=== PATIENT | female | born 1980 | race Caucasian/White ===

== ENCOUNTER 2019-06-03 17:58 | Emergency (ER) | payer MEDICAID, MEDICARE ==
[2019-06-03 18:28] VITALS: BP 143/80
[2019-06-03] MEDS ORDERED: Dexamethasone TAB* 4 MG PO ONE (19:13)
--- NOTE | 2019-06-03 19:13 | UC ---
UC General HPI - HPI Summary HPI Summary: Eye drainage, sore throat, R ear pain and cough x 3 days. No contact use. + hx asthma. + hx IDDM, BS average is 130 but is 247 with this illness. no fever, cp or sob. - History of Current Complaint Chief Complaint: UCGeneralIllness Stated Complaint: SORE THROAT/EARS/EYES Time Seen by Provider: 06/03/19 19:06 Hx Obtained From: Patient Onset/Duration: Gradual Onset Timing: Constant Pain Intensity: 8 - Allergy/Home Medications Allergies/Adverse Reactions: Allergies Allergy/AdvReac Type Severity Reaction Status Date / Time No Known Allergies Allergy Verified 06/03/19 18:28 Home Medications: Home Medications Insulin GLARGINE(*) [Lantus(*)] 69 units SUBCUT BID 06/03/19 [History Confirmed 06/03/19] Insulin Lispro [Humalog] 16 unit SC TID 06/03/19 [History Confirmed 06/03/19] Lisinopril TAB* [Prinivil TAB*] 25 mg PO DAILY 06/03/19 [History Confirmed 06/03] Metoprolol Tartrate TAB* [Lopressor TAB*] 50 mg PO BID 06/03/19 [History Confirmed 06/03/19] Pregabalin CAP(*) [Lyrica CAP(*)] 200 mg PO QID 06/03/19 [History Confirmed 01/16] PMH/Surg Hx/FS Hx/Imm Hx Endocrine History: Diabetes Respiratory History: Asthma - Surgical History Surgical History: Yes Surgery Procedure, Year, and Place: Partial left foot amp- 2016 - Family History Known Family History: Positive: Non-Contributory - Social History Alcohol Use: Rare Substance Use Type: None Smoking Status (MU): Current Every Day Smoker Amount Used/How Often: 1 ppd Length of Time of Smoking/Using Tobacco: 20 yr Review of Systems All Other Systems Reviewed And Are Negative: No Constitutional: Negative: Fever, Chills Eyes: Positive: Drainage, Eye Redness. Negative: Blurred Vision, Photophobia ENT: Positive: Sore Throat, Ear Ache - R. Negative: Sinus Congestion Respiratory: Positive: Cough. Negative: Shortness Of Breath Cardiovascular: Negative: Palpitations, Chest Pain Gastrointestinal: Negative: Vomiting, Diarrhea, Nausea Genitourinary: Negative: Dysuria Neurological: Negative: Headache Physical Exam Triage Information Reviewed: Yes Appearance: Well-Appearing Vital Signs: Initial Vital Signs Temp 97.8 F 06/03/19 18:21 Pulse 98 06/03/19 18:21 Resp 18 06/03/19 18:21 BP 143/80 06/03/19 18:21 Pulse Ox 100 06/03/19 18:21 Vital Signs Reviewed: Yes Eyes: Positive: Conjunctiva Inflamed, Discharge - green OU., Other: - PERRL. EOMI. No periorbital edema or rash. ENT: Positive: Pharyngeal erythema, TMs normal, Tonsillar swelling - moderate, Tonsillar exudate, Uvula midline. Negative: Nasal congestion, Nasal drainage, Trismus, Muffled voice, Hoarse voice Neck: Positive: Supple, Nontender, Enlarged Nodes @ - peritonsilar Respiratory: Positive: Lungs clear, Normal breath sounds, No respiratory distress Cardiovascular: Positive: RRR, No Murmur Abdomen Description: Positive: Nontender Musculoskeletal: Positive: ROM Intact Neurological: Positive: Alert Psychological: Positive: Age Appropriate Behavior Skin Exam: Normal Course/Dx - Differential Dx - Multi-Symptom Differential Diagnoses: Other - non toxic. not hypoxic. no concern for pneumonia. eyes c/w conjunctivitis with green d/c thus will tx for bacterial infection. Pharyngeal erythema, moderate swelling and exudative plus hx DM with BS 247 thus will cover for bacterial infection. No concern for abscess. - Diagnoses Provider Diagnosis: Conjunctivitis, Tonsillitis Discharge ED - Sign-Out/Discharge Documenting (check all that apply): Patient Departure All imaging exams completed and their final reports reviewed: No Studies - Discharge Plan Condition: Stable Disposition: HOME Prescriptions: Amoxicillin/Clavulanate TAB* [Augmentin TAB 875*] 875 mg PO BID 10 Days #20 tab Polymyx/Trimethoprim OPTH* [Polytrim OPHTH*] 1 drop BOTH EYES Q3H 7 Days #1 btl Patient Education Materials: Tonsillitis (ED), Conjunctivitis (ED) Referrals: No Primary Care Phys,NOPCP [Primary Care Provider] - Additional Instructions: FOLLOW UP WITH YOUR PRIMARY CARE IN [place] SCHEDULED ON 06/11/19. FOLLOW UP SOONER OR GO TO THE ER FOR ANY WORSENING. - Billing Disposition and Condition Condition: STABLE Disposition: Home - Attestation Statements Provider Attestation: This patient was not seen by me. I was available for consult. NEYDA
== END 2019-06-03 19:27 | disposition home or self-care (01) ==
LOC: UCCORT 17:58
DX: H10.9 Unspecified conjunctivitis (principal); J03.90 Acute tonsillitis, unspecified; E11.9 Type 2 diabetes mellitus without complications; Z79.4 Long term (current) use of insulin; F17.210 Nicotine dependence, cigarettes, uncomplicated
CPT/HCPCS: 87651; 99202; G0463; J8540

== ENCOUNTER 2022-08-31 17:42 | Inpatient (IN) ==
[2022-08-31] MEDS ORDERED: Lactated Ringers 1000 ml BAG 1,000 ML IV ONE ×2 (17:55)
[2022-08-31 18:59] LABS: ABS Basophils 0.2 10^3/ul (0-0.2); ABS Eosinophils 0.4 10^3/ul (0-0.6); ABS Lymphocytes 4.1 10^3/ul (1.0-4.8); ABS Neutrophils 18.9 10^3/ul (1.5-7.7); Eosinophil % 1.7 %; Hematocrit 38 % (35-47); Hemoglobin 12.7 g/dL (12.0-16.0); Lymphocyte % 16.5 %; Mean Corpuscular HGB Conc 33 g/dL (31-36); Mean Corpuscular Hemoglobin 29 pg (27-31); Mean Corpuscular Volume 88 fL (80-97); Mean Platelet Volume 7.9 fL (7.4-10.4); Nucleated Red Blood Cells % 0.1; Platelet Count 510 10^3/uL (150-450); Red Blood Count 4.32 10^6 /uL (3.70-4.87); Red Cell Distribution Width 15 % (10-15); White Blood Count 24.6 10^3/uL (3.5-10.8)
[2022-08-31 19:25] LABS: High Sens Troponin Baseline 7 pg/mL (<15)
[2022-08-31] MEDS ORDERED: Piperacillin/Tazobac ADVAN 3.375 GM in NS 0.9% 100 ml BAG 100 ML IV ONE (19:29)
[2022-08-31] MEDS ORDERED: Vancomycin 1,000 MG in NS 0.9% 250 ml 250 ML IVPB ONE (19:29)
[2022-08-31 20:02] LABS: ALT 11 U/L (7-52); Albumin 3.8 g/dL (3.2-5.2); Albumin/Globulin Ratio 0.7 (1-3); Alkaline Phosphatase 179 U/L (35-149); Blood Urea Nitrogen 14 mg/dL (6-24); CO2 Carbon Dioxide 30 mmol/L (22-32); Calcium 11.2 mg/dL (8.6-10.3); Chloride 88 mmol/L (101-111); Creatine Kinase 33 U/L (10-223); Globulin 5.3 g/dL (2-4); Glucose 252 mg/dL (70-100); Sodium 128 mmol/L (135-145); Total Protein 9.1 g/dL (6.4-8.9); eGFR CKD-EPI 47.9 (>60)
[2022-08-31 20:05] LABS: HCG Pregnancy < 0.60 mIU/mL
[2022-08-31 20:14] LABS: TSH Ultra Thyroid Stim Horm 0.76 mcIU/mL (0.34-5.60)
[2022-08-31 20:20] LABS: Anion Gap 10 mmol/L (2-11)
[2022-08-31 20:26] LABS: Venous Bicarbonate HCO3 26.7 mmol/L (24-28)
[2022-08-31 20:49] LABS: High Sensitivity Troponin 1 Hr 6 pg/mL (<15)
[2022-08-31 21:06] LABS: Magnesium 1.8 mg/dL (1.9-2.7)
[2022-08-31 21:07] LABS: Phosphorus 2.2 mg/dL (2.5-5.0); Potassium Redraw 4.9 mmol/L (3.5-5.0)
[2022-08-31] MEDS ORDERED: Magnesium Sulfate IV 3 GM in NS 0.9% 100 ml BAG 100 ML IVPB ONE (21:15)
[2022-08-31] MEDS ORDERED: Potassium Phosphate IV 5 MMOL in NS 0.9% 250 ml 250 ML IVPB ONE (21:15)
[2022-08-31] MEDS ORDERED: Dextrose 50% Syringe 50 ml 25 GM/50 ML SYRINGE IV PUSH PRN (21:49)
[2022-08-31] MEDS: Enoxaparin 40 MG/0.4 ML SYR SUBCUT SCH (23:59)
[2022-09-01] MEDS ORDERED: NS 0.9% 1000 ml BAG 1,000 ML IV ONE (03:45)
[2022-09-01 08:46] LABS: ABS Basophils 0.2 10^3/ul (0-0.2); ABS Eosinophils 0.4 10^3/ul (0-0.6); ABS Lymphocytes 4.1 10^3/ul (1.0-4.8); ABS Monocytes 0.8 10^3/ul (0-0.8); ABS Neutrophils 11.4 10^3/ul (1.5-7.7); Eosinophil % 2.2 %; Hematocrit 30 % (35-47); Hemoglobin 9.6 g/dL (12.0-16.0); Lymphocyte % 24.1 %; Mean Corpuscular HGB Conc 32 g/dL (31-36); Mean Corpuscular Hemoglobin 28 pg (27-31); Mean Corpuscular Volume 89 fL (80-97); Mean Platelet Volume 7.7 fL (7.4-10.4); Platelet Count 354 10^3/uL (150-450); Red Blood Count 3.39 10^6 /uL (3.70-4.87); Red Cell Distribution Width 15 % (10-15); White Blood Count 16.9 10^3/uL (3.5-10.8)
[2022-09-01 09:26] LABS: Calcium 9.2 mg/dL (8.6-10.3); Magnesium 2.3 mg/dL (1.9-2.7); Phosphorus 2.1 mg/dL (2.5-5.0); Potassium 4.1 mmol/L (3.5-5.0)
[2022-09-01] MEDS: Insulin GLARGINE 100 un/ml 10 ml VIAL SUBCUT SCH ×2 (09:26→22:57)
[2022-09-01 09:27] LABS: Urine Appearance Cloudy; Urine Bilirubin Negative (Negative); Urine Blood Negative (Negative); Urine Color Yellow; Urine Glucose 1+(50 mg/dL) (Negative); Urine Ketones Negative (Negative); Urine Nitrite Negative (Negative); Urine Protein 2+(100 mg/dL) (Negative); Urine Specific Gravity 1.017 (1.002-1.030); Urine Urobilinogen Negative (Negative)
[2022-09-01 09:31] LABS: Urine Bacteria 1+ (Absent); Urine Red Blood Cell 2+(6-10/hpf) (Absent); Urine Squamous Epithelial Cell Present (Absent); Urine White Blood Cell 1+(6-10/hpf) (Absent); Urine Yeast Present (Absent)
[2022-09-01 09:36] LABS: Urine Benzodiazepine Screen None Detected (None Detect); Urine Cannabinoids Screen None Detected (None Detect); Urine Opiates Screen None Detected (None Detect)
[2022-09-01] MEDS ORDERED: Dextrose 50% Syringe 50 ml 25 GM/50 ML SYRINGE IV PUSH PRN (09:38)
[2022-09-01] MEDS ORDERED: Vancomycin 1,500 MG in NS 0.9% 250 ml 250 ML IVPB SCH (12:00)
[2022-09-01] MEDS: Cefepime 2 GM in Dextrose 2 GM/50 ML BAG IV SCH ×2 (12:25→22:21)
[2022-09-01] MEDS ORDERED: Vancomycin 1,500 MG in NS 0.9% 250 ml 250 ML IVPB ONE (15:30)
[2022-09-01] MEDS ORDERED: Vancomycin per Pharmacy 1 EA NOTE FOLLOW UP PRN (18:51)
[2022-09-01] MEDS: Enoxaparin 40 MG/0.4 ML SYR SUBCUT SCH (22:24)
[2022-09-01] MEDS: Albuterol HFA INHALER 8 gm MDI INH PRN (22:45)
[2022-09-02] MEDS: Vancomycin 1,250 MG in NS 0.9% 250 ml 250 ML IVPB SCH ×2 (05:51→18:22)
[2022-09-02] MEDS: Albuterol HFA INHALER 8 gm MDI INH PRN ×2 (06:10→16:15)
[2022-09-02 06:22] LABS: Hematocrit 29 % (35-47); Hemoglobin 9.2 g/dL (12.0-16.0); Mean Corpuscular HGB Conc 31 g/dL (31-36); Mean Corpuscular Hemoglobin 29 pg (27-31); Mean Corpuscular Volume 91 fL (80-97); Mean Platelet Volume 7.7 fL (7.4-10.4); Platelet Count 284 10^3/uL (150-450); Red Blood Count 3.23 10^6 /uL (3.70-4.87); Red Cell Distribution Width 15 % (10-15); White Blood Count 11.4 10^3/uL (3.5-10.8)
[2022-09-02 06:55] LABS: C Reactive Protein 47.13 mg/L (<8.01); Magnesium 1.8 mg/dL (1.9-2.7); Potassium 4.1 mmol/L (3.5-5.0); eGFR CKD-EPI 80.3 (>60)
[2022-09-02] MEDS: Nicotine PATCH 21 MG/24 HR PATCH TRANSDERM SCH (08:06)
[2022-09-02] MEDS: guaiFENesin 100 mg/5 ml LIQ unit dose cup PO PRN ×2 (08:10→16:15)
[2022-09-02] MEDS: Insulin GLARGINE 100 un/ml 10 ml VIAL SUBCUT SCH ×2 (09:12→22:17)
[2022-09-02] MEDS: Cefepime 2 GM in Dextrose 2 GM/50 ML BAG IV SCH ×2 (11:22→22:43)
[2022-09-02] MEDS ORDERED: Morphine 2 MG/ML SYRINGE IV ONE (14:00)
[2022-09-02] MEDS ORDERED: Iodixanol (CONTRAST) 320 MG/ML 100 ML SDV IV ONE (14:10)
[2022-09-02] MEDS ORDERED: Magnesium Sulfate 2 gm BAG 2 GM/50 ML BAG IVPB ONE (15:30)
[2022-09-02] MEDS: metroNIDAZOLE IV 500 MG/100ML 500 MG/100 ML BAG IVPB SCH (18:12)
[2022-09-02] MEDS ORDERED: Morphine 2 MG/ML SYRINGE IV PRN (20:00)
[2022-09-02] MEDS: Calcium Carb (TUMS) 500 mg CHEW TAB PO PRN (20:52)
[2022-09-02] MEDS: Enoxaparin 40 MG/0.4 ML SYR SUBCUT SCH (22:15)
[2022-09-03] MEDS: metroNIDAZOLE IV 500 MG/100ML 500 MG/100 ML BAG IVPB SCH ×3 (00:40→18:02)
[2022-09-03] MEDS ORDERED: Vancomycin Trough Check NOTE FOLLOW UP ONE (05:30)
[2022-09-03 06:20] LABS: ABS Basophils 0.1 10^3/ul (0-0.2); ABS Eosinophils 0.4 10^3/ul (0-0.6); ABS Lymphocytes 3.4 10^3/ul (1.0-4.8); ABS Monocytes 0.8 10^3/ul (0-0.8); ABS Neutrophils 7.8 10^3/ul (1.5-7.7); Eosinophil % 2.9 %; Hematocrit 28 % (35-47); Hemoglobin 9.4 g/dL (12.0-16.0); Lymphocyte % 27.6 %; Mean Corpuscular HGB Conc 34 g/dL (31-36); Mean Corpuscular Hemoglobin 30 pg (27-31); Mean Corpuscular Volume 89 fL (80-97); Mean Platelet Volume 7.5 fL (7.4-10.4); Platelet Count 295 10^3/uL (150-450); Red Blood Count 3.14 10^6 /uL (3.70-4.87); Red Cell Distribution Width 15 % (10-15); White Blood Count 12.4 10^3/uL (3.5-10.8)
[2022-09-03 06:42] LABS: Albumin 2.5 g/dL (3.2-5.2); Albumin/Globulin Ratio 0.8 (1-3); Calcium 8.2 mg/dL (8.6-10.3); Potassium 4.4 mmol/L (3.5-5.0); Total Bilirubin 0.2 mg/dL (0.2-1.0); Total Protein 5.5 g/dL (6.4-8.9); eGFR CKD-EPI 87.1 (>60)
[2022-09-03 06:43] LABS: Vancomycin Trough 20.2 mcg/mL; eGFR CKD-EPI 87.1 (>60)
[2022-09-03] MEDS: Vancomycin 1,250 MG in NS 0.9% 250 ml 250 ML IVPB SCH (07:26)
[2022-09-03] MEDS: Albuterol HFA INHALER 8 gm MDI INH PRN ×2 (09:19→13:51)
[2022-09-03] MEDS ORDERED: Vancomycin 1000 MG in NS 0.9% 250 ML IVPB SCH (09:30)
[2022-09-03] MEDS: Nicotine PATCH 21 MG/24 HR PATCH TRANSDERM SCH (09:35)
[2022-09-03] MEDS: guaiFENesin 100 mg/5 ml LIQ unit dose cup PO PRN (10:24)
[2022-09-03] MEDS: Insulin GLARGINE 100 un/ml 10 ml VIAL SUBCUT SCH ×2 (10:40→21:22)
[2022-09-03] MEDS ORDERED: Dextrose 50% Syringe 50 ml 25 GM/50 ML SYRINGE IV PUSH PRN (11:47)
[2022-09-03] MEDS ORDERED: Insulin GLARGINE 100 un/ml 10 ml VIAL SUBCUT ONE (11:49)
[2022-09-03] MEDS: Cefepime 2 GM in Dextrose 2 GM/50 ML BAG IV SCH ×2 (12:01→22:56)
[2022-09-03] MEDS: Calcium Carb (TUMS) 500 mg CHEW TAB PO PRN (13:49)
[2022-09-03] MEDS ORDERED: Morphine 2 MG/ML SYRINGE IV ONE (17:30)
[2022-09-03] MEDS ORDERED: Calcium Carb (TUMS) 500 mg CHEW TAB PO PRN (17:31)
[2022-09-03] MEDS: Enoxaparin 40 MG/0.4 ML SYR SUBCUT SCH (21:21)
[2022-09-04] MEDS: metroNIDAZOLE IV 500 MG/100ML 500 MG/100 ML BAG IVPB SCH ×2 (02:13→08:29)
[2022-09-04] MEDS: Albuterol HFA INHALER 8 gm MDI INH PRN ×2 (04:30→15:22)
[2022-09-04 06:49] LABS: Hematocrit 31 % (35-47); Mean Corpuscular HGB Conc 33 g/dL (31-36); Mean Corpuscular Hemoglobin 30 pg (27-31); Mean Corpuscular Volume 90 fL (80-97); Mean Platelet Volume 7.6 fL (7.4-10.4); Platelet Count 302 10^3/uL (150-450); Red Blood Count 3.38 10^6 /uL (3.70-4.87); Red Cell Distribution Width 15 % (10-15)
[2022-09-04 07:25] LABS: Calcium 8.3 mg/dL (8.6-10.3); eGFR CKD-EPI 85.9 (>60)
[2022-09-04 07:30] LABS: Potassium 5.2 mmol/L (3.5-5.0)
[2022-09-04] MEDS: Insulin GLARGINE 100 un/ml 10 ml VIAL SUBCUT SCH ×2 (08:29→20:32)
[2022-09-04] MEDS: Nicotine PATCH 21 MG/24 HR PATCH TRANSDERM SCH (09:18)
[2022-09-04] MEDS: Cefepime 2 GM in Dextrose 2 GM/50 ML BAG IV SCH (11:21)
[2022-09-04] MEDS ORDERED: cefTRIAXone 1 gm/50 mL D5W 1 GM/50 ML BAG IV SCH (14:00)
[2022-09-04] MEDS ORDERED: Dextrose 50% Syringe 50 ml 25 GM/50 ML SYRINGE IV PUSH PRN (15:25)
[2022-09-04] MEDS: cefTRIAXone 2 gm/50 mL D5W 2 GM/50 ML BAG IV SCH (18:22)
[2022-09-04] MEDS: Enoxaparin 40 MG/0.4 ML SYR SUBCUT SCH (20:30)
[2022-09-05 06:27] LABS: Hematocrit 28 % (35-47); Hemoglobin 9.2 g/dL (12.0-16.0); Mean Corpuscular HGB Conc 33 g/dL (31-36); Mean Corpuscular Hemoglobin 31 pg (27-31); Mean Corpuscular Volume 92 fL (80-97); Mean Platelet Volume 7.5 fL (7.4-10.4); Platelet Count 266 10^3/uL (150-450); Red Blood Count 3.03 10^6 /uL (3.70-4.87); Red Cell Distribution Width 15 % (10-15); White Blood Count 9.3 10^3/uL (3.5-10.8)
[2022-09-05 07:12] LABS: Calcium 7.9 mg/dL (8.6-10.3); eGFR CKD-EPI 75.3 (>60)
[2022-09-05 07:13] LABS: Potassium 5.2 mmol/L (3.5-5.0)
[2022-09-05 07:41] LABS: ABS Basophils 0.1 10^3/ul (0-0.2); ABS Eosinophils 0.3 10^3/ul (0-0.6); ABS Lymphocytes 2.8 10^3/ul (1.0-4.8); ABS Monocytes 0.7 10^3/ul (0-0.8); ABS Neutrophils 5.5 10^3/ul (1.5-7.7); Eosinophil % 2.8 %; Lymphocyte % 30.5 %; Nucleated Red Blood Cells % 0.1; RBC Morphology Normal (Normal)
[2022-09-05] MEDS: Insulin GLARGINE 100 un/ml 10 ml VIAL SUBCUT SCH ×2 (08:54→21:58)
[2022-09-05] MEDS: Nicotine PATCH 21 MG/24 HR PATCH TRANSDERM SCH (08:56)
[2022-09-05] MEDS ORDERED: Vancomycin Trough Check NOTE FOLLOW UP ONE (09:00)
[2022-09-05] MEDS ORDERED: Insulin GLARGINE 100 un/ml 10 ml VIAL SUBCUT SCH (09:00)
[2022-09-05] MEDS ORDERED: Insulin GLARGINE 100 un/ml 10 ml VIAL SUBCUT ONE (10:00)
[2022-09-05 12:48] LABS: Albumin 2.2 g/dL (3.4-4.7); Albumin/Globulin Ratio 0.49; Gamma Globulin 1.7 g/dL (0.6-1.6); Total Protein(PEP) 6.6 g/dL (6.3 - 7.9)
[2022-09-05] MEDS: cefTRIAXone 2 gm/50 mL D5W 2 GM/50 ML BAG IV SCH (16:21)
[2022-09-05] MEDS: Enoxaparin 40 MG/0.4 ML SYR SUBCUT SCH (21:58)
[2022-09-06 06:09] LABS: Hematocrit 26 % (35-47); Hemoglobin 8.3 g/dL (12.0-16.0); Mean Corpuscular HGB Conc 31 g/dL (31-36); Mean Corpuscular Hemoglobin 29 pg (27-31); Mean Corpuscular Volume 92 fL (80-97); Mean Platelet Volume 7.9 fL (7.4-10.4); Platelet Count 260 10^3/uL (150-450); Red Blood Count 2.86 10^6 /uL (3.70-4.87); Red Cell Distribution Width 16 % (10-15); White Blood Count 11.5 10^3/uL (3.5-10.8)
[2022-09-06 06:34] LABS: Calcium 7.9 mg/dL (8.6-10.3); eGFR CKD-EPI 66.1 (>60)
[2022-09-06 06:37] LABS: Potassium 5.5 mmol/L (3.5-5.0)
[2022-09-06] MEDS: Nicotine PATCH 21 MG/24 HR PATCH TRANSDERM SCH (08:25)
[2022-09-06] MEDS ORDERED: Nicotine Lozenge mini 2 MG LOZNG.MINI MT PRN (09:01)
[2022-09-06] MEDS: Insulin GLARGINE 100 un/ml 10 ml VIAL SUBCUT SCH (09:39)
[2022-09-06 11:16] VITALS: BP 103/66
[2022-09-06] MEDS ORDERED: cefTRIAXone 2 gm/50 mL D5W 2 GM/50 ML BAG IV ONE (12:30)
== END 2022-09-06 14:35 | disposition home or self-care (01) | DRG 720 ==
LOC: ED 17:42 → EDHOLD 21:12 → SUATTDRO 21:12 → MED 09-01 02:50
PROVIDERS: ADMIT Student in an Organized Health Care Education/Training Program; ATTEND Internal Medicine

== ENCOUNTER 2023-02-04 16:53 | Inpatient (IN) ==
[2023-02-04] MEDS ORDERED: Lactated Ringers SEPSIS* BAG 1,850 ML IV ONE (17:59)
[2023-02-04] MEDS ORDERED: Cefepime 2 GM in Dextrose 2 GM/50 ML BAG IV ONE (17:59)
[2023-02-04] MEDS ORDERED: metroNIDAZOLE IV 500 MG/100ML 500 MG/100 ML BAG IVPB ONE (17:59)
[2023-02-04] MEDS ORDERED: Vancomycin 1,250 MG in NS 0.9% 250 ml 250 ML IVPB ONE (18:00)
[2023-02-04 19:58] LABS: ABS Eosinophils 0.3 10^3/uL (0.0-0.5); ABS Lymphocytes 3.2 10^3/uL (1.0-4.8); ABS Monocytes 0.7 10^3/uL (0.0-0.9); ABS Neutrophils 11.5 10^3/uL (1.5-7.6); ABS Nucleated RBC 0.01 10^3/ul; Eosinophil % 1.8 %; Hematocrit 32.4 % (35-45); Hemoglobin 10.9 g/dL (11.5-14.3); Lymphocyte % 20.3 %; Mean Corpuscular Hemoglobin 29.9 pg (27-33); Mean Corpuscular Hgb Conc 33.5 g/dL (31-36); Mean Corpuscular Volume 89.1 fL (80-97); Mean Platelet Volume 7.7 fL (7.5-11.2); Nucleated Red Blood Cells % 0.1 /100 WBC (0.0-0.4); Platelet Count 327 10^3/uL (150-450); Red Blood Count 3.63 10^6/uL (3.63-4.92); Red Cell Distribution Width 14.8 % (12-17); White Blood Count 15.7 10^3/uL (3.8-11.8)
[2023-02-04] MEDS ORDERED: oxyCODONE/Acetamin 5/325 mg TAB PO ONE (20:34)
[2023-02-04 20:39] LABS: Albumin 3.6 g/dL (3.2-5.2); Albumin/Globulin Ratio 1.1 (1-3); C Reactive Protein 18.02 mg/L (<8.01); Calcium 9.1 mg/dL (8.6-10.3); Creatinine, Serum 1.68 mg/dL (0.51-0.95); Globulin 3.4 g/dL (2-4); Total Bilirubin 0.4 mg/dL (0.2-1.0); eGFR CKD-EPI 38.5 (>60)
[2023-02-04] MEDS ORDERED: Al Hydrox/Mg Hydrox/Simet LIQ 30 ML UDC PO PRN (21:03)
[2023-02-04] MEDS ORDERED: Acetaminophen IV 1 GM/100ML 1,000 MG/100 ML BAG IV PRN (21:28)
[2023-02-04] MEDS ORDERED: guaiFENesin 100 mg/5 ml LIQ unit dose cup PO PRN (21:29)
[2023-02-04] MEDS ORDERED: Albuterol HFA INHALER 8 gm MDI INH PRN (21:29)
[2023-02-04] MEDS ORDERED: Dextrose 50% Syringe 50 ml 25 GM/50 ML SYRINGE IV PUSH PRN (21:29)
[2023-02-04] MEDS ORDERED: Vancomycin per Pharmacy 1 EA NOTE FOLLOW UP SCH (22:00)
[2023-02-04] MEDS ORDERED: Nicotine PATCH 21 MG/24 HR PATCH TRANSDERM PRN (22:29)
[2023-02-04] MEDS: Enoxaparin 40 MG/0.4 ML SYR SUBCUT SCH (22:48)
[2023-02-04] MEDS: Insulin GLARGINE 100 un/ml 10 ml VIAL SUBCUT SCH (22:48)
[2023-02-05] MEDS ORDERED: Dextrose 50% Syringe 50 ml 25 GM/50 ML SYRINGE IV PUSH PRN (01:56)
[2023-02-05] MEDS: metroNIDAZOLE IV 500 MG/100ML 500 MG/100 ML BAG IVPB SCH ×4 (04:38→22:03)
[2023-02-05 06:18] LABS: ABS Basophils 0.1 10^3/uL (0.0-0.1); ABS Eosinophils 0.3 10^3/uL (0.0-0.5); ABS Lymphocytes 3.3 10^3/uL (1.0-4.8); ABS Monocytes 0.7 10^3/uL (0.0-0.9); ABS Neutrophils 6.2 10^3/uL (1.5-7.6); ABS Nucleated RBC 0.01 10^3/ul; Eosinophil % 3.2 %; Hematocrit 29.7 % (35-45); Lymphocyte % 30.6 %; Mean Corpuscular Hemoglobin 30.8 pg (27-33); Mean Corpuscular Hgb Conc 33.6 g/dL (31-36); Mean Corpuscular Volume 91.5 fL (80-97); Nucleated Red Blood Cells % 0.1 /100 WBC (0.0-0.4); Platelet Count 239 10^3/uL (150-450); Red Blood Count 3.25 10^6/uL (3.63-4.92); Red Cell Distribution Width 14.5 % (12-17); White Blood Count 10.7 10^3/uL (3.8-11.8)
[2023-02-05 06:42] LABS: Calcium 8.4 mg/dL (8.6-10.3); Creatinine, Serum 1.57 mg/dL (0.51-0.95); Magnesium 1.5 mg/dL (1.9-2.7); Potassium 4.4 mmol/L (3.5-5.0); eGFR CKD-EPI 41.7 (>60)
[2023-02-05] MEDS: Insulin GLARGINE 100 un/ml 10 ml VIAL SUBCUT SCH ×2 (09:02→20:57)
[2023-02-05 09:04] LABS: C Reactive Protein 16.83 mg/L (<8.01)
[2023-02-05] MEDS: Cefepime 2 GM in Dextrose 2 GM/50 ML BAG IV SCH ×3 (09:13→22:16)
[2023-02-05] MEDS ORDERED: Vancomycin 1,500 MG in NS 0.9% 250 ml 250 ML IVPB SCH ×2 (12:00→15:00)
[2023-02-05] MEDS ORDERED: Senna TAB 8.6 mg TAB PO PRN (16:12)
[2023-02-05] MEDS ORDERED: Magnesium Hydroxide LIQ 30 ML UDC PO PRN (16:12)
[2023-02-05] MEDS ORDERED: Polyethylene Glycol 3350 17 GM PACKET PO PRN (16:12)
[2023-02-05 16:47] LABS: Ferritin 87.8 ng/mL (11-307)
[2023-02-05 18:44] LABS: Hepatitis C Antibody Reactive (Negative)
[2023-02-05] MEDS: Enoxaparin 40 MG/0.4 ML SYR SUBCUT SCH (20:43)
[2023-02-06] MEDS: metroNIDAZOLE IV 500 MG/100ML 500 MG/100 ML BAG IVPB SCH ×3 (05:50→20:15)
[2023-02-06 06:36] LABS: ABS Basophils 0.2 10^3/uL (0.0-0.1); ABS Eosinophils 0.4 10^3/uL (0.0-0.5); ABS Lymphocytes 4.2 10^3/uL (1.0-4.8); ABS Monocytes 0.7 10^3/uL (0.0-0.9); ABS Neutrophils 6.2 10^3/uL (1.5-7.6); ABS Nucleated RBC 0.01 10^3/ul; Eosinophil % 3.5 %; Hematocrit 30.4 % (35-45); Hemoglobin 10.2 g/dL (11.5-14.3); Lymphocyte % 35.8 %; Mean Corpuscular Hemoglobin 30.7 pg (27-33); Mean Corpuscular Hgb Conc 33.7 g/dL (31-36); Mean Platelet Volume 7.8 fL (7.5-11.2); Nucleated Red Blood Cells % 0.1 /100 WBC (0.0-0.4); Platelet Count 256 10^3/uL (150-450); Red Blood Count 3.34 10^6/uL (3.63-4.92); Red Cell Distribution Width 14.6 % (12-17); White Blood Count 11.6 10^3/uL (3.8-11.8)
[2023-02-06 07:06] LABS: Calcium 8.6 mg/dL (8.6-10.3); Creatinine, Serum 1.15 mg/dL (0.51-0.95); Magnesium 1.4 mg/dL (1.9-2.7); Potassium 4.6 mmol/L (3.5-5.0); eGFR CKD-EPI 60.6 (>60)
[2023-02-06 09:00] LABS: C Reactive Protein 13.39 mg/L (<8.01)
[2023-02-06] MEDS: Insulin GLARGINE 100 un/ml 10 ml VIAL SUBCUT SCH ×2 (09:46→21:09)
[2023-02-06] MEDS: Cefepime 2 GM in Dextrose 2 GM/50 ML BAG IV SCH ×2 (09:51→20:18)
[2023-02-06 15:22] LABS: TSH Ultra Thyroid Stim Horm 2.28 mcIU/mL (0.34-5.60)
[2023-02-06] MEDS: Enoxaparin 40 MG/0.4 ML SYR SUBCUT SCH (20:14)
[2023-02-07] MEDS: metroNIDAZOLE IV 500 MG/100ML 500 MG/100 ML BAG IVPB SCH ×2 (05:16→13:45)
[2023-02-07] MEDS: Cefepime 2 GM in Dextrose 2 GM/50 ML BAG IV SCH (08:27)
[2023-02-07] MEDS: Insulin GLARGINE 100 un/ml 10 ml VIAL SUBCUT SCH (08:27)
[2023-02-07 14:12] VITALS: BP 147/94
[2023-02-07] MEDS ORDERED: Vancomycin Trough Check NOTE FOLLOW UP ONE (14:30)
== END 2023-02-07 16:28 | disposition home or self-care (01) | DRG 872 ==
LOC: ED 16:53 → SUATTDRO 20:57 → EDHOLD 02-05 01:30 → MED 02-05 10:03
PROVIDERS: ADMIT Internal Medicine; ATTEND Internal Medicine